=== PATIENT | female | born 2000 | race Hispanic/Latino ===

== ENCOUNTER 2020-10-07 13:30 | Emergency (ER) | payer MEDICAID ==
[2020-10-07 13:56] LABS: EOSINOPHILS % (AUTO) 2.9 % (0.0-8.0); HEMATOCRIT 37.4 % (36-48); LYMPHOCYTES % (AUTO) 33.7 % (21.0-51.0); MEAN CORPUSCULAR HGB CONC 32.1 g/dL (32.0-36.0); MONOCYTES % (AUTO) 8.9 % (3.0-13.0); NEUTROPHILS % (AUTO) 53.2 % (40.0-77.0); PLATELET COUNT (AUTO) 387 K/uL (130-400); RED BLOOD CELL COUNT(AUTO) 4.45 MIL/uL (4.00-5.50); RED CELL DISTRIBUTION WIDTH 13.5 % (11.0-15.5); WHITE BLOOD COUNT (AUTO) 7.2 K/uL (4.8-10.8)
[2020-10-07 14:06] LABS: CARBON DIOXIDE 25 mmol/L (21-32); CHLORIDE 105 mmol/L (101-111); CREATININE 0.8 mg/dL (0.5-1.5); GLOMERULAR FILTR. RATE CALC 98 mL/min (>60); GLUCOSE,RANDOM 89 mg/dL (70-105); POTASSIUM 3.6 mmol/L (3.5-5.1); SODIUM SERUM 139 mmol/L (136-145); UREA NITROGEN, BLOOD 8 mg/dL (7-18)
[2020-10-07 14:10] LABS: ALANINE AMINOTRANSFERASE 22 U/L (12-78); ASPARTATE AMINOTRANSFERASE 24 U/L (10-37); BILIRUBIN,TOTAL 0.5 mg/dL (0.2-1.0); TOTAL PROTEIN, SERUM 7.8 g/dL (6.0-8.3)
[2020-10-07 14:11] LABS: ACETAMINOPHEN < 1 mcg/mL (10-30); SALICYLATE < 2.8 mg/dL (2.8-20.0)
[2020-10-07] MEDS ORDERED: HALOPERIDOL LACTATE 5 MG/ML VIAL ONE (14:18)
[2020-10-07] MEDS ORDERED: LORAZEPAM 2 MG/ML 1 ML VIAL ONE (14:36)
[2020-10-07] MEDS ORDERED: DiphenhydrAMINE HCL 50 MG/ML VIAL ONE (14:36)
[2020-10-07 14:39] LABS: APPEARANCE,URINE Clear (CLEAR); BILIRUBIN,URINE Negative (NEGATIVE); COLOR,URINE Yellow (YELLOW); GLUCOSE, URINE (UA) Negative (NEGATIVE); KETONES,URINE Trace mg/dL (NEGATIVE); LEUKOCYTE ESTERASE ,URINE Trace (NEGATIVE); NITRATE,URINE Negative (NEGATIVE); OCCULT BLOOD,URINE Moderate (NEGATIVE); PH,URINE 5.5 (5.0-8.0); PROTEIN,URINE Negative (NEGATIVE)
[2020-10-07 14:47] LABS: AMPHET/METH SCREEN,URINE NEGATIVE (NEGATIVE); BARBITURATE SCREEN, URINE NEGATIVE (NEGATIVE); BENZODIAZEPINES SCREEN,URINE NEGATIVE (NEGATIVE); CANNABINOID SCREEN,URINE NEGATIVE (NEGATIVE); COCAINE SCREEN,URINE NEGATIVE (NEGATIVE); OPIATE SCREEN,URINE NEGATIVE (NEGATIVE); PHENCYCLIDINE SCREEN,URINE NEGATIVE (NEGATIVE)
[2020-10-07 14:50] LABS: HCG,QUAL RESULT NEGATIVE (NEGATIVE)
[2020-10-07 14:53] LABS: RBC,URINE 0-1 /HPF (0-1)
[2020-10-07 14:55] LABS: BACTERIA,URINE Rare /HPF (None Seen); MUCUS,URINE Rare LPF (None Seen); SQUAMOUS EPITHELIAL CELL,UR Few /HPF (0-2)
== END 2020-10-08 04:05 ==
LOC: EDH 13:30
DX: F23 Brief psychotic disorder (principal); R45.6 Violent behavior; Z20.822 Contact with and (suspected) exposure to COVID-19
CPT/HCPCS: 36415; 80053; 80305; 81001; 81025; 85025; 87426; 96372 ×2; 96374; 99285; G0481; J1200; J1630; J2060; U0003

== ENCOUNTER 2023-09-05 23:33 | Emergency (ER) | payer MEDICAID, OTHER ==
[2023-09-06 01:09] LABS: BASOPHILS # (AUTO) 0.07 K/uL (0.00-0.20); BASOPHILS % (AUTO) 0.7 % (0.0-5.0); EOSINOPHILS # (AUTO) 0.12 K/uL (0.00-0.70); EOSINOPHILS % (AUTO) 1.2 % (0.0-8.0); HEMATOCRIT 44.1 % (36-48); IMMATURE GRANULOCYTE ABSOLUTE 0.03 K/uL (0-1); LYMPHOCYTES # (AUTO) 3.4 K/uL (1.0-4.8); LYMPHOCYTES % (AUTO) 33.9 % (21.0-51.0); MEAN CORPUSCULAR HEMOGLOBIN 27.2 pg (27.0-33.0); MEAN CORPUSCULAR HGB CONC 32.7 g/dL (32.0-36.0); MEAN CORPUSCULAR VOLUME 83.4 fL (79-99); MONOCYTES # (AUTO) 0.8 K/uL (0.1-1.0); MONOCYTES % (AUTO) 8.1 % (3.0-13.0); NEUTROPHILS # (AUTO) 5.5 K/uL (1.8-7.7); NEUTROPHILS % (AUTO) 55.8 % (40.0-77.0); PLATELET COUNT (AUTO) 445 K/uL (130-400); RED BLOOD CELL COUNT(AUTO) 5.29 MIL/uL (4.00-5.50); WHITE BLOOD COUNT (AUTO) 9.9 K/uL (4.8-10.8)
[2023-09-06 01:17] LABS: CARBON DIOXIDE 29 mmol/L (21-32); CHLORIDE 101 mmol/L (101-111); CREATININE 0.7 mg/dL (0.5-1.5); GLOMERULAR FILTR. RATE CALC 125 mL/min (>90); GLUCOSE,RANDOM 92 mg/dL (70-105); POTASSIUM 3.5 mmol/L (3.5-5.1); SODIUM SERUM 141 mmol/L (136-145); UREA NITROGEN, BLOOD 8 mg/dL (7-18)
[2023-09-06 01:22] LABS: ALANINE AMINOTRANSFERASE 20 U/L (12-78); ALBUMIN 4.4 g/dL (3.5-5.0); ALCOHOL, BLOOD < 3 mg/dL (0-10); ASPARTATE AMINOTRANSFERASE 20 U/L (10-37); BILIRUBIN,TOTAL 0.5 mg/dL (0.2-1.0); TOTAL PROTEIN, SERUM 8.3 g/dL (6.0-8.3)
[2023-09-06 01:37] LABS: ACETAMINOPHEN < 1 mcg/mL (10-30); SALICYLATE < 2.8 mg/dL (2.8-20.0)
[2023-09-06 01:44] LABS: APPEARANCE,URINE CLEAR (CLEAR); BILIRUBIN,URINE NEGATIVE (NEGATIVE); COLOR,URINE COLORLESS (YELLOW); GLUCOSE, URINE (UA) NEGATIVE (NEGATIVE); KETONES,URINE NEGATIVE (NEGATIVE); LEUKOCYTE ESTERASE ,URINE NEGATIVE Leu/uL (NEGATIVE); NITRATE,URINE NEGATIVE (NEGATIVE); OCCULT BLOOD,URINE NEGATIVE (NEGATIVE); PROTEIN,URINE NEGATIVE (NEGATIVE); UROBILINOGEN,URINE 0.2 mg/dL (0.2-1.0)
[2023-09-06 01:47] LABS: ADD UA MICROSCOPIC NO
[2023-09-06 01:50] LABS: AMPHET/METH SCREEN,URINE NEGATIVE (NEGATIVE); BARBITURATE SCREEN, URINE NEGATIVE (NEGATIVE); BENZODIAZEPINES SCREEN,URINE NEGATIVE (NEGATIVE); CANNABINOID SCREEN,URINE NEGATIVE (NEGATIVE); COCAINE SCREEN,URINE NEGATIVE (NEGATIVE); OPIATE SCREEN,URINE NEGATIVE (NEGATIVE); PHENCYCLIDINE SCREEN,URINE NEGATIVE (NEGATIVE)
[2023-09-06 08:42] VITALS: BP 116/72; PULSE 90; RESP 16; O2SAT 100
== END 2023-09-06 07:40 | disposition short-term general hospital (02) ==
LOC: EDH 23:33
DX: F29 Unspecified psychosis not due to a substance or known physiological condition (principal)
CPT/HCPCS: 99284; 80053; 80305; 85025; 81025; 36415; 81003; G0481

== ENCOUNTER 2023-11-14 09:14 | Emergency (ER) | payer OTHER ==
[~2023-11-14] VITALS: Ht 152.4 cm; Wt 45.4 kg
[2023-11-14 09:15] VITALS: BP 148/93; PULSE 75; RESP 14; O2SAT 99
[2023-11-14 09:35] LABS: APPEARANCE,URINE CLEAR (CLEAR); BILIRUBIN,URINE NEGATIVE (NEGATIVE); COLOR,URINE COLORLESS (YELLOW); GLUCOSE, URINE (UA) NEGATIVE (NEGATIVE); KETONES,URINE NEGATIVE (NEGATIVE); LEUKOCYTE ESTERASE ,URINE 75 Leu/uL (NEGATIVE); NITRATE,URINE NEGATIVE (NEGATIVE); OCCULT BLOOD,URINE NEGATIVE (NEGATIVE); PH,URINE 7.5 (5.0-8.0); PROTEIN,URINE NEGATIVE (NEGATIVE); UROBILINOGEN,URINE 0.2 mg/dL (0.2-1.0)
[2023-11-14 10:07] LABS: ADD UA MICROSCOPIC YES
[2023-11-14 10:10] LABS: SQUAMOUS EPITHELIAL CELL,UR RARE /HPF (0-2)
[2023-11-14 10:13] LABS: HCG,QUALITATIVE URINE NEGATIVE (NEGATIVE)
[2023-11-14 10:22] LABS: BASOPHILS # (AUTO) 0.05 K/uL (0.00-0.20); BASOPHILS % (AUTO) 0.6 % (0.0-5.0); EOSINOPHILS # (AUTO) 0.14 K/uL (0.00-0.70); EOSINOPHILS % (AUTO) 1.6 % (0.0-8.0); HEMATOCRIT 40.4 % (36-48); IMMATURE GRANULOCYTE ABSOLUTE 0.02 K/uL (0-1); LYMPHOCYTES # (AUTO) 3.9 K/uL (1.0-4.8); MEAN CORPUSCULAR HEMOGLOBIN 26.8 pg (27.0-33.0); MEAN CORPUSCULAR HGB CONC 31.9 g/dL (32.0-36.0); MONOCYTES # (AUTO) 0.8 K/uL (0.1-1.0); MONOCYTES % (AUTO) 9.5 % (3.0-13.0); NEUTROPHILS # (AUTO) 3.9 K/uL (1.8-7.7); NEUTROPHILS % (AUTO) 44.1 % (40.0-77.0); PLATELET COUNT (AUTO) 427 K/uL (130-400); RED BLOOD CELL COUNT(AUTO) 4.81 MIL/uL (4.00-5.50); RED CELL DISTRIBUTION WIDTH 12.9 % (11.0-15.5); WHITE BLOOD COUNT (AUTO) 8.9 K/uL (4.8-10.8)
[2023-11-14] MEDS: HYDROXYZINE 50MG VIAL 50 MG/ML VIAL IM SCH (10:26)
[2023-11-14 10:34] LABS: CARBON DIOXIDE 31 mmol/L (21-32); CHLORIDE 102 mmol/L (101-111); CREATININE 0.8 mg/dL (0.5-1.5); GLOMERULAR FILTR. RATE CALC 107 mL/min (>90); GLUCOSE,RANDOM 139 mg/dL (70-105); POTASSIUM 3.7 mmol/L (3.5-5.1); SODIUM SERUM 139 mmol/L (136-145); UREA NITROGEN, BLOOD 11 mg/dL (7-18)
[2023-11-14 10:38] LABS: ALANINE AMINOTRANSFERASE 18 U/L (12-78); ALBUMIN 4.1 g/dL (3.5-5.0); ALCOHOL, BLOOD < 3 mg/dL (0-10); ASPARTATE AMINOTRANSFERASE 17 U/L (10-37); BILIRUBIN,TOTAL 0.3 mg/dL (0.2-1.0); CREATINE KINASE, TOTAL 142 U/L (21-232); TOTAL PROTEIN, SERUM 8.2 g/dL (6.0-8.3)
[2023-11-14 10:47] LABS: SALICYLATE < 2.8 mg/dL (2.8-20.0)
[2023-11-14 10:48] LABS: ACETAMINOPHEN < 1 mcg/mL (10-30)
[2023-11-14 11:30] LABS: AMPHET/METH SCREEN,URINE NEGATIVE (NEGATIVE); BARBITURATE SCREEN, URINE NEGATIVE (NEGATIVE); BENZODIAZEPINES SCREEN,URINE NEGATIVE (NEGATIVE); CANNABINOID SCREEN,URINE NEGATIVE (NEGATIVE); COCAINE SCREEN,URINE NEGATIVE (NEGATIVE); OPIATE SCREEN,URINE NEGATIVE (NEGATIVE); PHENCYCLIDINE SCREEN,URINE NEGATIVE (NEGATIVE)
== END 2023-11-14 11:22 | disposition left against medical advice (07) ==
LOC: EDH 09:14
DX: H04.123 Dry eye syndrome of bilateral lacrimal glands (principal); R09.81 Nasal congestion; F20.9 Schizophrenia, unspecified; Z79.899 Other long term (current) drug therapy
CPT/HCPCS: 99284; 82550; 84484; 80053; 80305; 85025; 87088; 81025; 36415; 96372; 93005; 81001; J3410; G0481

== ENCOUNTER 2024-06-07 01:53 | Emergency (ER) | payer MEDICARE ==
[~2024-06-07] VITALS: Ht 152.4 cm; Wt 52.6 kg
[2024-06-07 02:25] LABS: BASOPHILS # (AUTO) 0.06 K/uL (0.00-0.20); BASOPHILS % (AUTO) 0.7 % (0.0-5.0); EOSINOPHILS # (AUTO) 0.09 K/uL (0.00-0.70); EOSINOPHILS % (AUTO) 1.1 % (0.0-8.0); HEMATOCRIT 38.8 % (36-48); IMMATURE GRANULOCYTE ABSOLUTE 0.01 K/uL (0-1); LYMPHOCYTES # (AUTO) 3.3 K/uL (1.0-4.8); LYMPHOCYTES % (AUTO) 41.5 % (21.0-51.0); MEAN CORPUSCULAR HEMOGLOBIN 26.8 pg (27.0-33.0); MEAN CORPUSCULAR HGB CONC 33.2 g/dL (32.0-36.0); MEAN CORPUSCULAR VOLUME 80.5 fL (79-99); MONOCYTES # (AUTO) 0.6 K/uL (0.1-1.0); MONOCYTES % (AUTO) 7.8 % (3.0-13.0); NEUTROPHILS # (AUTO) 3.9 K/uL (1.8-7.7); NEUTROPHILS % (AUTO) 48.8 % (40.0-77.0); PLATELET COUNT (AUTO) 387 K/uL (130-400); RED BLOOD CELL COUNT(AUTO) 4.82 MIL/uL (4.00-5.50); RED CELL DISTRIBUTION WIDTH 12.1 % (11.0-15.5)
[2024-06-07 02:39] LABS: CARBON DIOXIDE 29 mmol/L (21-32); CHLORIDE 99 mmol/L (101-111); CREATININE 0.8 mg/dL (0.5-1.0); GLOMERULAR FILTR. RATE CALC 106 mL/min (>90); GLUCOSE,RANDOM 95 mg/dL (70-105); POTASSIUM 3.4 mmol/L (3.5-5.1); SODIUM SERUM 135 mmol/L (136-145); UREA NITROGEN, BLOOD 5 mg/dL (7-18)
[2024-06-07 02:44] LABS: ALCOHOL, BLOOD < 3 mg/dL (0-10); CREATINE KINASE, TOTAL 162 U/L (21-232)
--- NOTE | 2024-06-07 02:48 | NUR ---
PATIENTS YELLING FROM HER ROOM "SHES BOTHERING ME" SOON SHE SEES HER MOTHER PEEKING THROUGH THE CURTAIN
[2024-06-07 03:00] LABS: ACETAMINOPHEN < 1 mcg/mL (10-30); SALICYLATE < 2.8 mg/dL (2.8-20.0)
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
--- NOTE | 2024-06-07 09:19 | EKG ---
[facility] Test Date: 2024-06-07 Test Time: 02:13:28 Pat Name: JOSHUA ORR Department: [facility] Room: Gender: F Planning Lead: 1081 : 2000 Requested By: ALEX RODRIGUEZ Order Number: [id number] Reading MD: Oliver Brady Measurements Intervals Elizabeth Rate: 76 P: 76 PA: 152 QRS: 79 QRSD: 81 T: 54 QT: 384 QTc: 433 Interpretive Statements Sinus rhythm Compared to ECG 11/14/2023 10:09:52 No significant changes Electronically Signed On 06-08-2024 19:30:20 CDT by Oliver Brady Please click the below link to view image of tracing.
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
--- NOTE | 2024-06-07 12:18 | NUR ---
PT MOTHER ABLE TO PROVIDE PHYSICAL PROOF OF POA.
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
--- NOTE | 2024-06-07 14:22 | NUR ---
MOTHER WITH "POA" GAVE US PERMISION TO CATH PT.
[2024-06-07 14:47] LABS: APPEARANCE,URINE CLEAR (CLEAR); BILIRUBIN,URINE NEGATIVE (NEGATIVE); COLOR,URINE LIGHT-YELLOW (YELLOW); GLUCOSE, URINE (UA) NEGATIVE (NEGATIVE); KETONES,URINE 40 mg/dL (NEGATIVE); LEUKOCYTE ESTERASE ,URINE NEGATIVE Leu/uL (NEGATIVE); NITRATE,URINE NEGATIVE (NEGATIVE); OCCULT BLOOD,URINE NEGATIVE (NEGATIVE); PH,URINE 6.5 (5.0-8.0); PROTEIN,URINE NEGATIVE (NEGATIVE); RBC,URINE 0-1 /HPF (0-1); SQUAMOUS EPITHELIAL CELL,UR RARE /HPF (0-2); UROBILINOGEN,URINE 3 mg/dL (0.2-1.0); WBC,URINE 0-1 /HPF (0-1)
[2024-06-07 14:49] LABS: HCG,QUALITATIVE URINE NEGATIVE (NEGATIVE)
[2024-06-07 14:51] LABS: AMPHET/METH SCREEN,URINE NEGATIVE (NEGATIVE); BARBITURATE SCREEN, URINE NEGATIVE (NEGATIVE); BENZODIAZEPINES SCREEN,URINE NEGATIVE (NEGATIVE); CANNABINOID SCREEN,URINE NEGATIVE (NEGATIVE); COCAINE SCREEN,URINE POSITIVE (NEGATIVE); OPIATE SCREEN,URINE NEGATIVE (NEGATIVE); PHENCYCLIDINE SCREEN,URINE NEGATIVE (NEGATIVE)
--- NOTE | 2024-06-07 15:16 | NUR ---
TRANSFER REQUEST TO [facility] FOR [place] NURSE CALL PLACE [phone] SPOKE WITH URI INFORMATION PROVIDED WILL CALL BACK. CARLOS GROVE
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
--- NOTE | 2024-06-07 16:20 | NUR ---
CALL BACK WITH ACCEPTANCE TO [facility] [facility] TAMEZ AND PRIMARY NURSE TO CALL REPORT TO [phone] AND EMS WHEN READY. CONSENTS SIGN BY MOTHER POA. CARLOS GROVE
--- NOTE | 2024-06-07 16:33 | NUR ---
REPORT GIVEN TO SARAH GROVE AT [facility] LUCIA HAAS.
--- NOTE | 2024-06-07 17:21 | NUR ---
[facility] EMS ARRIVED AT THIS TIME FOR TRANSFER TO [facility]. MOTHER NOTIFIED OF TRANSFER TO [facility].
[2024-06-07 17:23] VITALS: BP 133/77; PULSE 68; RESP 20; TEMP 98.8; O2SAT 98
== END 2024-06-07 17:26 | disposition short-term general hospital (02) ==
LOC: EDH 01:53
DX: F29 Unspecified psychosis not due to a substance or known physiological condition (principal); F14.10 Cocaine abuse, uncomplicated; F20.9 Schizophrenia, unspecified; F31.9 Bipolar disorder, unspecified; F19.10 Other psychoactive substance abuse, uncomplicated; Z04.41 Encounter for examination and observation following alleged adult rape
CPT/HCPCS: 99285; 82550; 80048; 80305; 84703; 84702; 85025; 81025; 36415; 93005; 81001; G0481

== ENCOUNTER 2025-06-20 23:19 | Emergency (ER) | payer MEDICARE ==
[~2025-06-20] VITALS: Ht 160 cm; Wt 54.4 kg
--- NOTE | 2025-06-20 23:45 | NUR ---
TRIAGE EDIT TO ADD PMH
[2025-06-21 00:10] VITALS: TEMP 98.2
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
[2025-06-21] MEDS: RABIES VACC, HUMAN DIPLOID/PF 2.5 UNIT VIAL IM ONE (00:23)
[2025-06-21 00:35] VITALS: BP 124/70; PULSE 101; RESP 20; O2SAT 98
== END 2025-06-21 00:36 | disposition home or self-care (01) ==
LOC: EDH 23:19
DX: S61.431A Puncture wound without foreign body of right hand, initial encounter (principal); S90.811A Abrasion, right foot, initial encounter; F20.9 Schizophrenia, unspecified; Z20.3 Contact with and (suspected) exposure to rabies; Z29.14 Encounter for prophylactic rabies immune globulin; W54.0XXA Bitten by dog, initial encounter; Y93.9 Activity, unspecified; Y92.89 Other specified places as the place of occurrence of the external cause; Y99.8 Other external cause status
CPT/HCPCS: 90471; 90472; 90675; 90714; 99284